=== PATIENT | male | born 1970 | race Caucasian/White ===

== ENCOUNTER 2016-10-14 07:36 | Emergency (ER) | payer OTHER ==
[~2016-10-14] VITALS: Ht 177.8 cm; Wt 91.6 kg
[~2016-10-14 07:36] MED LIST: ABILIFY5 M1 PO; LEXAPRO 20MG M20 MG PO; PROPRANOLOL HCL20 MG PO; TYLENOL WITH C1 EACH PO; XANAX0.5 MG PO
[2016-10-14 09:52] LABS: ABSOLUTE BASOPHIL COUNT 0 /CUMM (0.0-0.2); ABSOLUTE EOSINOPHIL COUNT 0.1 /CUMM (0.0-0.7); ABSOLUTE GRANULOCYTE CT 4.4 /CUMM (1.4-6.5); ABSOLUTE LYMPH COUNT 0.7 /CUMM (1.2-3.4); ABSOLUTE MONOCYTE COUNT 0.6 /CUMM (0.10-0.60); BASOPHIL % 0.3 % (0.0-2.0); EOSINOPHIL % 1.1 % (0-5); GRANULOCYTE % 75.6 % (42.2-75.2); HEMATOCRIT 48.9 % (42-52); MEAN CORPUSCULAR HGB 29.7 PG (27.0-31.0); MEAN CORPUSCULAR HGB CONC 34.4 G/DL (33.0-37.0); MEAN CORPUSCULAR VOLUME 86.4 FL (80.0-94.0); MEAN PLATELET VOLUME 9.4 FL (7.4-10.4); PLATELET COUNT 201 /CUMM (130-400); RBC DISTRIBUTION WIDTH 12.3 % (11.5-14.5); RED BLOOD CELL CT 5.66 /CUMM (4.70-6.10); WHITE BLOOD CELL COUNT 5.9 /CUMM (4.8-10.8)
--- NOTE | 2016-10-14 11:23 | CT SCAN REPORT ---
EXAMINATION: CT ANGIOGRAM HEAD CLINICAL INFORMATION: 46-year-old man with headaches, insomnia, and seizure. Evaluate for recurrent aneurysm. COMPARISON: 05/23/[address] TECHNIQUE: The patient was premedicated due to a history of IV contrast allergy. Test bolus sequences followed by intravenous administration 114 mL of Optiray 350 intravenous contrast. Helical imaging was performed in the axial plane from the mediastinum to the skull vertex. Noncontrast and delayed postcontrast imaging of the head was also performed. The data was processed at the cath lab radiological technologist's workstation for generation of MIP sequences. Three-dimensional volume rendered reformatted images were also generated at an offline 3-D workstation. DLP: 1859 mGy-cm. FINDINGS: HEAD: The patient has undergone prior right parietal craniotomy. Radiodense vascular and aneurysm clips are seen just beneath and inferior to the craniotomy flap near the right transverse sinus. There is some focal stable encephalomalacia in this region as well. No new enhancing intracranial mass, hemorrhage, midline shift, or extra-axial collection is identified. The paranasal sinuses are well aerated and clear. CRANIAL CTA: There is normal opacification of the major intracranial vessels. No acute proximal large vessel occlusion, focal flow-limiting stenosis, or saccular intracranial aneurysm is identified. No abnormal parenchymal enhancement or regional oligemia is visualized. IMPRESSION: Stable post surgical changes as described. Otherwise unremarkable brain CTA.
--- NOTE | 2016-10-14 11:47 | ED GENERAL ADULT ---
See Addendum History of Present Illness General Chief Complaint: General Adult Stated Complaint: "FUNNY TASTE IN MOUTH","CONVULSIONS IN SLEEP" Source: patient, old records Exam Limitations: no limitations Vital Signs & Intake/Output Vital Signs & Intake/Output Vital Signs Date Time Temp Pulse Resp B/P Pulse O2 O2 Flow FiO2 Ox Delivery Rate 10/14 1124 98.7 98 18 135/73 97 Room Air 10/14 0738 97.6 80 16 132/85 100 Room Air Allergies Coded Allergies: Iodinated Contrast Media - Oral and (PEDIATRIC ALLERGY 09/08/16) aspirin (Intermediate, BRAIN ANEURYSM, NEUROLOGIST DOES NOT RECOMMEND 09/08/16) carbamazepine (Intermediate, SEIZURES 09/08/16) lactose (Intermediate, GI UPSET 09/08/16) phenobarbital (Intermediate, SEIZURES 09/08/16) phenytoin (Intermediate, SEIZURES 09/08/16) Uncoded Allergies: SEASONAL ALLERGIES (SNEEZE , WATERY EYES, RUNNY NOSE 02/28/15) Reconcile Medications Alprazolam (Xanax) 0.5 MG TABLET 0 PO SEE ADMIN CRITERIA PRN panic May repeat a 2nd tab after 30 minutes if still with anxiety 4 times daily Aripiprazole (Abilify) 5 MG TABLET 1 TAB PO DAILY anxiety PROPRANOLOL HCL (Propranolol HCl) 20 MG TABLET 1 TAB PO TID HEART RATE/ANXIETY (Reported) Tylenol With Codeine (Tylenol With Codeine #3 Tablet) 1 EACH TABLET 1 TAB PO BIDP PRN HEADACHE Triage Note: PT STATES THAT HE WAS STARTED ON PROPANOLOL YESTERDAY DUE TO INSOMNIA, 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 Triage Nurses Notes Reviewed? yes Onset: 1 month Duration: week(s):, continues in ED, waxing and waning Timing: recent history Severity: moderate No Modifying Factors: none HPI: 1 month prior to admission patient complains of insomnia increased anxiety loss of appetite headaches palpitations lower abdominal discomfort that radiates to the chest. He has been evaluated by his PMD psychiatry and cardiology. Last night he thinks he may of had a seizure while sleeping awaking with generalized tremors myoclonic shaking and metallic taste in his mouth. Denies fever chills nausea vomiting diarrhea shortness breath dysuria rash bleeding. Past History Travel History Traveled to [place] past 21 day No Medical History Any Pertinent Medical History? 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 No Review of Systems Review of Systems Constitutional: Reports: see HPI, malaise. EENTM: Reports: see HPI. Respiratory: Reports: no symptoms. Cardiovascular: Reports: see HPI, palpitations. GI: Reports: no symptoms. Genitourinary: Reports: no symptoms. Musculoskeletal: Reports: no symptoms. Skin: Reports: no symptoms. Neurological/Psychological: Reports: see HPI, anxiety, headache. Hematologic/Endocrine: Reports: no symptoms. Immunologic/Allergic: Reports: no symptoms. All Other Systems: Reviewed and Negative Physical Exam Physical Exam General Appearance: well developed/nourished, alert, awake, anxious, mild distress Head: atraumatic, normal appearance Eyes: Bilateral: normal appearance, PERRL, EOMI. Ears, Nose, Throat: normal pharynx, normal ENT inspection, dental caries Neck: normal inspection, supple, full range of motion, no midline tenderness Respiratory: normal breath sounds, chest non-tender, no respiratory distress, quiet respiration, lungs clear Cardiovascular: regular rate/rhythm, normal peripheral pulses, norml femoral pulses equa Peripheral Pulses: 4+ carotid (R), 4+ carotid (L), 2+ radial (R), 2+ radial (L) Gastrointestinal: normal bowel sounds, soft, non-tender, no organomegaly Back: normal inspection, normal range of motion Extremities: normal inspection, normal capillary refill, normal range of motion, no edema Neurologic/Psych: no motor/sensory deficits, awake, alert, oriented x 3, normal gait, normal mood/affect, gill box fixer II-XII nml as tested Reflexes: 2+: bicep (R), bicep (L). Skin: intact, normal color Lymphatic: no anterior cervical teja Core Measures ACS in differential dx? No CVA/TIA Diagnosis: No Severe Sepsis Present: No Septic Shock Present: No Progress Differential Diagnoses I considered the following diagnoses in my evaluation of the patient: Seizure arrhythmia electrolyte abnormality depression aneurysm Plan of Care: Orders Procedure Date/time Status PROLACTIN 10/14 905 Complete MAGNESIUM 10/14 905 Complete COMPREHENSIVE METABOLIC PANEL 10/14 905 Complete CBC WITHOUT DIFFERENTIAL 10/14 905 Complete Laboratory Tests 10/14/16 0920: Anion Gap 10, Estimated GFR > 60, BUN/Creatinine Ratio 12.5, Glucose 106 H, Calcium 9.9, Magnesium 2.2, Total Bilirubin 1.1, AST 24, ALT 45, Alkaline Phosphatase 64, Total Protein 7.6, Albumin 4.6, Globulin 3.0, Albumin/Globulin Ratio 1.5, Prolactin 6.7, CBC w Diff NO MAN DIFF REQ, RBC 5.66, MCV 86.4, MCH 29.7, RDW 12.3, MPV 9.4, Gran % 75.6 H, Lymphocytes % 12.7 L, Monocytes % 10.3 H, Eosinophils % 1.1, Basophils % 0.3, Absolute Granulocytes 4.4, Absolute Lymphocytes 0.7 L, Absolute Monocytes 0.6, Absolute Eosinophils 0.1, Absolute Basophils 0, PUBS MCHC 34.4 Diagnostic Imaging: Viewed by Me: CT Scan. Discussed w/RAD: CT Scan. Radiology Impression: no acute abnormality Initial ED EKG: none Departure Departure Time of Disposition: 1141 Disposition: HOME OR SELF CARE Condition: Stable Clinical Impression Primary Impression: Seizure disorder Secondary Impressions: Dental caries Insomnia Qualifiers: Insomnia type: unspecified Qualified Code: G47.00 - Insomnia, unspecified Palpitations Referrals: RYLAN BURKS,SAMARA CARRERA MD,LUIS F (PCP/Family) ANANYA SEVILLA MD Additional Instructions: Follow up with your dentist Departure Forms: Customer Survey General Discharge Information Critical Care Note Critical Care Note Critical Care Time: non-applicable
[2016-10-14 13:36] VITALS: BP 116/70
== END 2016-10-14 13:57 ==
LOC: ERH 07:36
PROVIDERS: Emergency Medicine
DX: G40.909 Epilepsy, unspecified, not intractable, without status epilepticus (principal); K02.9 Dental caries, unspecified; G47.00 Insomnia, unspecified; R00.2 Palpitations; R10.13 Epigastric pain
CPT/HCPCS: 96374; 96375; J1200; J2930; Q9965

== ENCOUNTER 2016-10-16 07:58 | Emergency (ER) | payer OTHER ==
[~2016-10-16] VITALS: Ht 177.8 cm; Wt 91.6 kg
--- NOTE | 2016-10-16 08:37 | ED GENERAL ADULT ---
History of Present Illness General Chief Complaint: General Adult Stated Complaint: ACID REFLUX AND MANY OTHER COMPLAINTS Source: patient, old records Exam Limitations: no limitations Vital Signs & Intake/Output Vital Signs & Intake/Output Vital Signs Date Time Temp Pulse Resp B/P Pulse O2 O2 Flow FiO2 Ox Delivery Rate 10/16 0830 97 Room Air 10/16 0803 97.6 103 20 144/96 100 Room Air Allergies Coded Allergies: Iodinated Contrast Media - Oral and (PEDIATRIC ALLERGY 09/08/16) aspirin (Intermediate, BRAIN ANEURYSM, NEUROLOGIST DOES NOT RECOMMEND 09/08/16) carbamazepine (Intermediate, SEIZURES 09/08/16) lactose (Intermediate, GI UPSET 09/08/16) phenobarbital (Intermediate, SEIZURES 09/08/16) phenytoin (Intermediate, SEIZURES 09/08/16) Uncoded Allergies: SEASONAL ALLERGIES (SNEEZE , WATERY EYES, RUNNY NOSE 02/28/15) Reconcile Medications Aripiprazole (Abilify) 5 MG TABLET 1 TAB PO DAILY anxiety Escitalopram Oxalate 10 MG TABLET 1.5 TAB PO DAILY MENTAL HEALTH (Reported) PROPRANOLOL HCL (Propranolol HCl) 20 MG TABLET 1 TAB PO TID HEART RATE/ANXIETY (Reported) Triage Note: C/O ABDOMINAL PAIN AND HEART BURN, WITH MOUTH AND LEGS BURNING, SWEATING. SEEN HERE 2 DAYS AGO FOR SAME, HAD CT SCAN AND BLOOD WORK DONE (NEGATIVE). STATES HE HAS "MESH" IN HIS STOMACH FROM A PREVIOUS ULCER. PAIN IS WORSE TODAY. DENIES VOMITING OR DIARRHEA. Triage Nurses Notes Reviewed? yes HPI: Patient presents for evaluation of a severe burning heartburn pain in his chest and abdomen. Patient states he tried omeprazole without relief. He took one dose yesterday. Although he has a history of acid reflux he does not take medication for it generally. In addition the patient is complaining of burning leg pains, palpitations in his sleep and a funny taste in his mouth. He states that his symptoms seem to have worsened after a CAT scan done at the [facility] emergency department 2 days ago for an evaluation of a funny taste in his mouth and convulsions during sleep. He tried to see his primary care physician and GI specialists after that emergency department visit but has been unable to schedule an expedient appointment. He saw his campaign associate this week and had an echocardiogram and EKG performed. He saw his campaign associate because he was having palpitations in his sleep with associated insomnia. Patient describes his symptoms as constant severe and fluctuating in intensity. Past History Travel History Traveled to [place] past 21 day No Medical History Any Pertinent Medical History? 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 No Review of Systems Review of Systems Constitutional: Reports: no symptoms. EENTM: Reports: no symptoms. Respiratory: Reports: no symptoms. Cardiovascular: Reports: chest pain. GI: Reports: see HPI. Genitourinary: Reports: no symptoms. Musculoskeletal: Reports: see HPI. Skin: Reports: no symptoms. Neurological/Psychological: Reports: no symptoms. Hematologic/Endocrine: Reports: no symptoms. Immunologic/Allergic: Reports: no symptoms. All Other Systems: Reviewed and Negative Physical Exam Physical Exam General Appearance: see below Comments: Gen.: Well-nourished, well-developed, no acute respiratory distress. Moves slowly about the emergency department. Head: Normocephalic, atraumatic. Eyes: Normal inspection bilaterally Ears: Normal inspection bilaterally Nose: Normal inspection Throat/mouth : Moist mucosa Neck: Supple, full range of motion, no goiter Heart: Regular rate and rhythm, no murmurs rubs or gallops Lungs: Clear to auscultation bilaterally with normal air entry Chest: Nontender Back: Normal range of motion Abdomen: Soft, diffuse tenderness without rebound or guarding, nondistended, normal bowel sounds Extremities: Normal range of motion grossly, equal radial pulses, no cyanosis clubbing or edema, calves nontender Neurologic: Cranial nerves grossly intact, speech is clear Skin: warm and dry Psychiatric: Calm, cooperative, no apparent delusions or hallucinations Core Measures ACS in differential dx? No CVA/TIA Diagnosis: No Severe Sepsis Present: No Septic Shock Present: No Progress Differential Diagnoses I considered the following diagnoses in my evaluation of the patient: Acid reflux, hypothyroidism, anxiety Plan of Care: Orders Procedure Date/time Status TSH REFLEX 10/16 836 Complete LIPASE 10/16 836 Complete WESTERGREN SED RATE 10/16 836 Complete COMPREHENSIVE METABOLIC PANEL 10/16 836 Complete CBC WITHOUT DIFFERENTIAL 10/16 836 Complete Laboratory Tests 10/16/16 0912: Anion Gap 11, Estimated GFR > 60, BUN/Creatinine Ratio 16.4, Glucose 105 H, Calcium 9.7, Total Bilirubin 1.1, AST 29, ALT 47, Alkaline Phosphatase 67, Total Protein 7.8, Albumin 4.9, Globulin 2.9, Albumin/Globulin Ratio 1.7, Lipase 111, TSH &T3 &Free T4 Intrp 1.510, CBC w Diff NO MAN DIFF REQ, RBC 5.55, MCV 85.9, MCH 29.9, RDW 12.3, MPV 9.1, Gran % 71.0, Lymphocytes % 15.8 L, Monocytes % 12.6 H, Eosinophils % 0.3, Basophils % 0.3, Absolute Granulocytes 3.6, Absolute Lymphocytes 0.8 L, Absolute Monocytes 0.6, Absolute Eosinophils 0, Absolute Basophils 0, PUBS MCHC 34.8, ESR Westergren 2 Diagnostic Imaging: Discussed w/RAD: CT Scan. Radiology Impression: PATIENT: VELVET RAMOS PRESENT AGE: 46 PATIENT ACCOUNT NO: [id number] : 68 LOCATION: [facility] ORDERING PHYSICIAN: VENKATESH KAUR MD SERVICE DATE: 10/16/16 EXAM TYPE: CAT - CT ABD & PELVIS W/O IV CONTRAS EXAMINATION: CT ABDOMEN AND PELVIS WITHOUT CONTRAST CLINICAL INFORMATION: Burning chest and abdominal pain. COMPARISON: None TECHNIQUE: Multidetector volumetric imaging was performed from the superior aspect of the liver through the pubic symphysis. Sagittal and coronal reformatted images were obtained on the technologist's workstation. DLP: 311 mGy -cm FINDINGS: LUNG BASES: Unremarkable LIVER AND SPLEEN: Unremarkable PANCREAS GALLBLADDER AND BILIARY TREE: Pancreas is normal appearing. There is some hyperdense bile or sludge suggested within the gallbladder without evidence of cholelithiasis or acute cholecystitis. KIDNEYS, URETERS, AND ADRENALS: Unremarkable on this noncontrast examination. URINARY BLADDER: Well-distended and unremarkable. GI TRACT: There may be one or 2 small diverticula at the junction of the descending and sigmoid colon. Certainly there is no evidence of acute diverticulitis. There are multiple small lymph nodes along the small bowel mesentery in the left side of the abdomen with some very subtle soft tissue stranding which is nonspecific and could represent mesenteric panniculitis. Findings can also be seen with inflammatory bowel disease or lymphoma, however I see no other evidence of these alternate 2 diseases. Clinical correlation recommended. Otherwise unremarkable including a normal-appearing appendix. PERITONEAL CAVITY: No intraperitoneal free fluid or focal masses. RETROPERITONEUM: Mild atherosclerotic aortic calcification without aneurysmal dilatation. There is no retroperitoneal lymphadenopathy. PELVIC ORGANS: Unremarkable ANTERIOR ABDOMINAL WALL AND SOFT TISSUES: Small left inguinal hernia contains only mesenteric fat. Otherwise unremarkable. OSSEOUS STRUCTURES: Unremarkable IMPRESSION: 1. No evidence of an acute intra-abdominal process. 2. Hyperdense bile or sludge in the gallbladder, no evidence of cholelithiasis or acute cholecystitis. 3. Sigmoid colon diverticulosis, no evidence of diverticulitis. 4. Nonspecific small lymph nodes along the mesentery, question mesenteric panniculitis. 5. Small nonspecific mesenteric lymph nodes with subtle stranding. 6. Small left inguinal hernia contains only mesenteric fat. DICTATED BY: REINIER HOWARD MD DATE/TIME DICTATED:10/16/16955 LIVESTOCK HAULIER: ROSA DATE/TIME TRANSCRIBED:10/16/16955 CONFIDENTIAL, DO NOT COPY WITHOUT APPROPRIATE AUTHORIZATION. <Electronically signed in Other Vendor System> SIGNED BY: REINIER HOWARD MD 10/16/16 1019 Initial ED EKG: none Comments: Patient's prior evaluation in the emergency department reviewed. Blood work unremarkable. Patient had a CAT scan of the head but apparently no imaging studies of the abdomen and pelvis. 10/16/2016 11:22:27 AM I have updated Velvet on his test results. He keeps repeating that he is experiencing acid reflux into the chest. Plan Zofran for nausea and vomiting and continuation of the omeprazole on a consistent basis. Follow-up with a GI specialist and primary care physician. Regarding the questionable findings of mesenteric lymph nodes and the possibility of panniculitis, patient's white count and ESR are normal saline doubt an acute inflammatory or infectious process. Departure Departure Disposition: HOME OR SELF CARE Condition: Stable Clinical Impression Primary Impression: Abdominal pain Qualifiers: Abdominal location: periumbilical Qualified Code: R10.33 - Periumbilical pain Secondary Impressions: Acid reflux Qualifiers: Esophagitis presence: with esophagitis Qualified Code: K21.0 - Gastro-esophageal reflux disease with esophagitis Diverticulosis Qualifiers: Diverticulosis site: diverticulosis of large intestine Diverticulosis bleeding: diverticulosis without bleeding Qualified Code: K57.30 - Diverticulosis of large intestine without perforation or abscess without bleeding Referrals: DEBI BURKS,LUIS F (PCP/Family) LAKISHA CARSON MD Additional Instructions: [place] diet and avoid large meals and lying down after. Continue the omeprazole daily. Add Zofran as needed for nausea or vomiting. [id number] antacids as necessary. Follow-up with the GI specialist as soon as possible, notify your primary care doctor of this emergency department visit and treatment plan. Return if any concerns or sudden worsening. Please note that there might be incidental findings in your evaluation that are unrelated to the current emergency department visit. Please notify your primary care doctor about this emergency department visit in order to obtain and review all of the testing performed so that these incidental findings can be monitored as needed. If you had an x-ray performed, please understand that some fractures may not be seen on the initial set of x-rays. If your symptoms persist you might need a repeat set of x-rays to check for such a fracture. If you had a laceration evaluated, please understand that foreign bodies such as glass or wood may not be visible to the naked eye or on plain x-rays. If the wound becomes red, swollen, increasingly more painful or if there is any drainage from the wound, please have it reevaluated by a physician for the possibility of a retained foreign body. Thank you for choosing the [facility] Emergency Department for your care. It was a pleasure to serve you today. Venkatesh Kaur M.D. [facility] Departure Forms: Customer Survey General Discharge Information Prescriptions: Current Visit Scripts Ondansetron (Zofran Odt) 1 TAB SL Q6P PRN NAUSEA/VOMITING #10 TAB Critical Care Note Critical Care Note Critical Care Time: non-applicable
[2016-10-16] MEDS ORDERED: ESCITALOPRAM OX10 MG PO (09:18)
[2016-10-16 09:20] LABS: ABSOLUTE BASOPHIL COUNT 0 /CUMM (0.0-0.2); ABSOLUTE EOSINOPHIL COUNT 0 /CUMM (0.0-0.7); ABSOLUTE GRANULOCYTE CT 3.6 /CUMM (1.4-6.5); ABSOLUTE LYMPH COUNT 0.8 /CUMM (1.2-3.4); ABSOLUTE MONOCYTE COUNT 0.6 /CUMM (0.10-0.60); BASOPHIL % 0.3 % (0.0-2.0); EOSINOPHIL % 0.3 % (0-5); HEMATOCRIT 47.7 % (42-52); MEAN CORPUSCULAR HGB 29.9 PG (27.0-31.0); MEAN CORPUSCULAR HGB CONC 34.8 G/DL (33.0-37.0); MEAN CORPUSCULAR VOLUME 85.9 FL (80.0-94.0); MEAN PLATELET VOLUME 9.1 FL (7.4-10.4); PLATELET COUNT 175 /CUMM (130-400); RBC DISTRIBUTION WIDTH 12.3 % (11.5-14.5); RED BLOOD CELL CT 5.55 /CUMM (4.70-6.10); WHITE BLOOD CELL COUNT 5.1 /CUMM (4.8-10.8)
--- NOTE | 2016-10-16 10:19 | CT SCAN REPORT ---
EXAMINATION: CT ABDOMEN AND PELVIS WITHOUT CONTRAST CLINICAL INFORMATION: Burning chest and abdominal pain. COMPARISON: None TECHNIQUE: Multidetector volumetric imaging was performed from the superior aspect of the liver through the pubic symphysis. Sagittal and coronal reformatted images were obtained on the technologist's workstation. DLP: 311 mGy-cm FINDINGS: LUNG BASES: Unremarkable LIVER AND SPLEEN: Unremarkable PANCREAS GALLBLADDER AND BILIARY TREE: Pancreas is normal appearing. There is some hyperdense bile or sludge suggested within the gallbladder without evidence of cholelithiasis or acute cholecystitis. KIDNEYS, URETERS, AND ADRENALS: Unremarkable on this noncontrast examination. URINARY BLADDER: Well-distended and unremarkable. GI TRACT: There may be one or 2 small diverticula at the junction of the descending and sigmoid colon. Certainly there is no evidence of acute diverticulitis. There are multiple small lymph nodes along the small bowel mesentery in the left side of the abdomen with some very subtle soft tissue stranding which is nonspecific and could represent mesenteric panniculitis. Findings can also be seen with inflammatory bowel disease or lymphoma, however I see no other evidence of these alternate 2 diseases. Clinical correlation recommended. Otherwise unremarkable including a normal-appearing appendix. PERITONEAL CAVITY: No intraperitoneal free fluid or focal masses. RETROPERITONEUM: Mild atherosclerotic aortic calcification without aneurysmal dilatation. There is no retroperitoneal lymphadenopathy. PELVIC ORGANS: Unremarkable ANTERIOR ABDOMINAL WALL AND SOFT TISSUES: Small left inguinal hernia contains only mesenteric fat. Otherwise unremarkable. OSSEOUS STRUCTURES: Unremarkable IMPRESSION: 1. No evidence of an acute intra-abdominal process. 2. Hyperdense bile or sludge in the gallbladder, no evidence of cholelithiasis or acute cholecystitis. 3. Sigmoid colon diverticulosis, no evidence of diverticulitis. 4. Nonspecific small lymph nodes along the mesentery, question mesenteric panniculitis. 5. Small nonspecific mesenteric lymph nodes with subtle stranding. 6. Small left inguinal hernia contains only mesenteric fat.
[2016-10-16] MEDS ORDERED: ZOFRAN ODT4 M1 SL (11:27)
[2016-10-16 11:41] VITALS: BP 135/84
--- NOTE | 2016-10-19 08:47 | OP PSYCH INCIDENTAL NOTE ---
OPS Incidential Note Details: I received a message that pt. was admitted to [facility] over the weekend
== END 2016-10-16 11:42 ==
LOC: ERH 07:58
PROVIDERS: Emergency Medicine
DX: K21.9 Gastro-esophageal reflux disease without esophagitis (principal); K57.92 Diverticulitis of intestine, part unspecified, without perforation or abscess without bleeding
CPT/HCPCS: 74176

== ENCOUNTER 2016-10-19 11:35 | Emergency (ER) | payer OTHER ==
[~2016-10-19] VITALS: Ht 177.8 cm; Wt 88.5 kg
[~2016-10-19 11:35] MED LIST changes: +ESCITALOPRAM OX10 MG PO; +ZOFRAN ODT4 M1 SL
--- NOTE | 2016-10-19 14:01 | ED PSYCHIATRIC COMPLAINT ---
History of Present Illness General Chief Complaint: Psychiatric Related Complaint Stated Complaint: SENT FROM GI FOR BP 115/90?,ANXIETY,CONFUSED Source: patient, old records Exam Limitations: no limitations Vital Signs & Intake/Output Vital Signs & Intake/Output Vital Signs Date Time Temp Pulse Resp B/P Pulse O2 O2 Flow FiO2 Ox Delivery Rate 10/19 2021 97.8 87 18 128/79 99 Room Air 10/19 1611 97.1 10/19 1520 97.1 88 18 128/80 98 10/19 1140 97.0 84 18 130/83 98 Room Air Allergies Coded Allergies: Iodinated Contrast Media - Oral and (PEDIATRIC ALLERGY 09/08/16) aspirin (Intermediate, BRAIN ANEURYSM, NEUROLOGIST DOES NOT RECOMMEND 09/08/16) carbamazepine (Intermediate, SEIZURES 09/08/16) lactose (Intermediate, GI UPSET 09/08/16) phenobarbital (Intermediate, SEIZURES 09/08/16) phenytoin (Intermediate, SEIZURES 09/08/16) Uncoded Allergies: SEASONAL ALLERGIES (SNEEZE , WATERY EYES, RUNNY NOSE 02/28/15) Reconcile Medications Alprazolam (Xanax) 0.5 MG TABLET 1 TAB PO BIDP PRN anxiety Aripiprazole (Abilify) 5 MG TABLET 1 TAB PO DAILY anxiety Escitalopram Oxalate 10 MG TABLET 1.5 TAB PO DAILY MENTAL HEALTH (Reported) Hydroxyzine Pamoate (Vistaril) 50 MG CAPSULE 1 CAP PO TID PRN anxiety Ondansetron (Zofran Odt) 4 MG TAB.RAPDIS 1 TAB SL Q6P PRN NAUSEA/VOMITING PROPRANOLOL HCL (Propranolol HCl) 20 MG TABLET 1 TAB PO TID HEART RATE/ANXIETY (Reported) Triage Note: PT STATES THAT HE WAS AT DR LEVY OFFICE FOR GI FOLLOW UP , COMPLAINS OF BEING UP SINCE 0100 FEELING VERY ANXIOUS, WAS STARTED ON ANXIETY MEDS AT [facility]. PT HAS BEEN SEEN HERE A FEW TIMES FOR ACID REFLUX, STATES THAT HE LEFT HERE WEDNESDAY AND WHEN HE WAS DISCHARGED HE WENT TO [facility] WHERE HE WAS ADMITTED FOR IV PROTONIX, STATES THAT HE HAD A LOT OF ANXIETY AND AND STARTED ON XANAX. PT STATES THAT HE CALLED IOP AND THEY TOLD HIM TO COME TO ER FOR EVALUATION. DENIES SI/HI. Triage Nurses Notes Reviewed? yes Onset: Abrupt Duration: week(s):, constant, getting worse Timing: recent history Severity: moderate Severity Numbers: 7 Associated Symptoms: anxiety, impaired concentration, insomnia HPI: This is a 46-year-old male with history of panic attacks anxiety disorder depression history of seizures migraine headaches brain in [place] presents to emergency room sent in by [facility] for evaluation. The patient states that he was admitted to [facility] over the weekend due to severe reflux for which she was receiving IV Protonix and was having worsening anxiety secondary to his symptoms. The patient was taken off of Valium and was sent home with Xanax 0.25 mg for a total of 3 pills. He states that he woke up at 1:00 in the morning and has been unable to sleep since. He feels as though his mind and body have been "racing". The patient denies history of suicidal or homicidal ideation. He denies any alcohol or drug use. The patient states that previously he was having abdominal pain feeling nauseous. He states in the past he's had panic attacks where he said chest tightness pain palpitations which she denies a history of today. He [facility] her referred him to the emergency room for further workup after he missed his appointment this morning to be seen by them.. He has been compliant with taking his Lexapro. The patient was seen here twice within the past 5 days with an unremarkable workup including CAT scans of the abdomen and head (SAMARA ABDUL) Past History Travel History Traveled to [place] past 21 day No Medical History Any Pertinent Medical History? 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 No (SAMARA ABDUL) Review of Systems Review of Systems Constitutional: Reports: see HPI. All Other Systems: Reviewed and Negative Comments Review of systems: See HPI, All other systems negative. Constitutional, no chills no fever, no malaise HEENT: no sore throat no congestion, no ear pain Cardiovascular: No chest pain , no palpitation Skin, no jaundice no rashes, no change in skin Respiratory: No dyspnea no cough no sputum no hemoptysis GI: No nausea no vomiting, no diarrhea : No dysuria Muscle skeletal: No joint pain, no joint swelling, no back pain, no neck pain, Neurologic: No numbness no confusion, no headache Psych: SEE HPI Heme/endocrine: No bruising no bleeding Immunology: No lymphadenopathY (SAMARA ABDUL) Physical Exam Physical Exam General Appearance: well developed/nourished, alert, awake Neurological/Psychiatric: awake, normal mood/affect, calm, 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 moist mucous membranes. Neck: Supple, no lymphadenopathy, normal range of motion Back: Nontender, Full range of motion Cardiovascular: Regular rate and rhythms no murmurs rubs Respiratory: No respiratory distress. Patient speaking in full complete sentences. Breath sounds clear to auscultation bilaterally: NO W/R/R Abdomen: Soft, nontender nondistended, no appreciable organomegaly. Normal bowel sounds. No rebound/guarding Extremity: No edema, full range of motion of extremities Neuro: Alert oriented x3, motor sensory normal, There were no obvious focal neurologic abnormalities. Skin: No appreciable rash on exposed skin, skin is warm and dry. Psych: Mood and affect is normal, memory and judgment is normal. SAD PERSONS Done? patient not suicidal (SAMARA ABDUL) Progress Differential Diagnosis: drug overdose, drug withdrawal, electrolyte abnormality, ANXIETY DISORDER Plan of Care: Orders Procedure Date/time Status URINE DRUG SCREEN FOR ER ONLY 10/19 1401 Complete ETHANOL 10/19 1401 Complete COMPREHENSIVE METABOLIC PANEL 10/19 1401 Complete CBC WITHOUT DIFFERENTIAL 10/19 140 Complete ED CRISIS PSYCH CONSULT 10/19 1401 Active Laboratory Tests 10/19/16 1539: Urine Opiates Screen < 100.00, Methadone Screen < 40, Barbiturate Screen < 60, Ur Phencyclidine Scrn < 6.00, Amphetamines Screen < 100, U Benzodiazepines Scrn > 800 H, Urine Cocaine Screen < 50, Urine Cannabis Screen < 5.00 10/19/16 1512: Anion Gap 11, Estimated GFR > 60, BUN/Creatinine Ratio 13.6, Glucose 102 H, Calcium 9.9, Total Bilirubin 1.3, AST 50, ALT 115 H, Alkaline Phosphatase 76, Total Protein 8.1, Albumin 4.9, Globulin 3.2, Albumin/Globulin Ratio 1.5, CBC w Diff NO MAN DIFF REQ, RBC 5.53, MCV 87.3, MCH 29.7, RDW 12.4, MPV 9.5, Gran % 76.2 H, Lymphocytes % 13.4 L, Monocytes % 9.0, Eosinophils % 1.1, Basophils % 0.3, Absolute Granulocytes 4.8, Absolute Lymphocytes 0.9 L, Absolute Monocytes 0.6, Absolute Eosinophils 0.1, Absolute Basophils 0, PUBS MCHC 34.0, Serum Alcohol < 10.0 LABS ORDERED, OLD RECORDS REVIEWED. CRISIS CONSULTED Case was discussed with Spoke with crisis who after speaking with the patient getting collateral they feel the patient can be safely discharged advise Vistaril BuSpar or Benadryl. In addition to the Xanax he has at home. Discussed the patient this plan of care he feels comfortable plan he'll follow-up with his psychiatrist tomorrow he will return anytime sooner if the symptoms worsen despite the Vistaril prescription of Xanax provided cleared for discharge (SAMARA ABDUL) Departure Departure Time of Disposition: 1953 Disposition: HOME OR SELF CARE Condition: Stable Clinical Impression Primary Impression: Anxiety Referrals: DEBI BURKS,LUIS F (PCP/Family) GRUPO GONZALEZ MD Additional Instructions: Follow-up with your doctor at [facility] as well as your psychiatrist tomorrow. Vistaril and Xanax as directed no driving or drinking alcohol while taking this medication is still make you drowsy Departure Forms: Customer Survey General Discharge Information Prescriptions: Current Visit Scripts Hydroxyzine Pamoate (Vistaril) 1 CAP PO TID PRN anxiety #15 CAP Alprazolam (Xanax) 1 TAB PO BIDP PRN anxiety #10 TAB (SAMARA ABDUL) PA/CEO ZIFF DAVIS Co-Sign Statement Statement: ED Attending supervision documentation- [] I saw and evaluated the patient. I have also reviewed all the pertinent lab results and diagnostic results. I agree with the findings and the plan of care as documented in the PA's/CEO ZIFF DAVIS's documentation. [X] I have reviewed the ED Record and agree with the PA's/CEO ZIFF DAVIS's documentation. [] Additions or exceptions (if any) to the PAs/CEO ZIFF DAVIS's note and plan are summarized below: [] (YAHAIRA BURKS,KOFI)
--- NOTE | 2016-10-19 14:59 | ED PSY CRISIS COLLATERAL NOTE ---
Collateral Note Collateral Note Family/Inform/Lizeth Contacts: [facility] () Out pt Therapist Zenaida Saldana LCSW called crisis and left a voice message informing that she sent pt to the ED for a Crisis eval due to anxiety and somatic complaints. She reported that he was recently discharged from inpt [facility] and was told that the primary issues were due to anxiety and not medical. She also informed that he has been seen in the ED several times. Additionally, she informed that she will send crisis an email with additional clinical. She sent the following in an email: "Mani Levy is a 46yo single, Cauc. male in OPS for Major Depression and Panic Disorder. He has been calling OPS to reach Dr. Cheng, several times this morning 10/19, staff in OPS asked me to take his call. He was in the parking lot on his way in to ED (IS NOW IN ED) , reports various somatic issues, high anxiety, was just released from [facility] due to somatic issues (muscle tightness, anxiety, poor sleep) was there from 10/16/16-10/18/16, was told upon discharge it was anxiety and to contact Dr. Parks (Pt missed his appt. with Dr. Dowd this morning). 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 is concerned about his BP 115/90, and was recommended to see Dr. Cheng (per PT). Mani seems to be very somatically preoccupied, and seems root is severe anxiety - may need IOP or psych admission. He has many workup's in ED, and has various outpatient medical appointments. He is reporting poor sleep, poor appetite, obsessive thoughts about somatic issues, extreme anxiety. Mani is a single, employed male resides with is girlfriend, Alexandra (together 9yrs) in [place], [place]. He has been in OPS - with myself for individual 1-2x per month, and Dr. Cheng for meds. He does not attend any groups - refuses groups in the past. Zenaida Saldana LCSW"
[2016-10-19 15:37] LABS: ABSOLUTE BASOPHIL COUNT 0 /CUMM (0.0-0.2); ABSOLUTE EOSINOPHIL COUNT 0.1 /CUMM (0.0-0.7); ABSOLUTE GRANULOCYTE CT 4.8 /CUMM (1.4-6.5); ABSOLUTE LYMPH COUNT 0.9 /CUMM (1.2-3.4); ABSOLUTE MONOCYTE COUNT 0.6 /CUMM (0.10-0.60); BASOPHIL % 0.3 % (0.0-2.0); EOSINOPHIL % 1.1 % (0-5); GRANULOCYTE % 76.2 % (42.2-75.2); HEMATOCRIT 48.3 % (42-52); MEAN CORPUSCULAR HGB 29.7 PG (27.0-31.0); MEAN CORPUSCULAR VOLUME 87.3 FL (80.0-94.0); MEAN PLATELET VOLUME 9.5 FL (7.4-10.4); PLATELET COUNT 184 /CUMM (130-400); RBC DISTRIBUTION WIDTH 12.4 % (11.5-14.5); RED BLOOD CELL CT 5.53 /CUMM (4.70-6.10); WHITE BLOOD CELL COUNT 6.3 /CUMM (4.8-10.8)
[2016-10-19] MEDS ORDERED: XANAX0.5 M1 PO (19:55)
[2016-10-19] MEDS ORDERED: VISTARIL50 M1 PO (19:55)
[2016-10-19 20:22] VITALS: BP 128/79
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
== END 2016-10-19 20:24 ==
LOC: ERH 11:35
PROVIDERS: Physician Assistant Medical
DX: F41.9 Anxiety disorder, unspecified (principal)
CPT/HCPCS: 80307; G0463; G0480

== ENCOUNTER 2016-10-21 05:48 | Emergency (ER) | payer OTHER ==
[~2016-10-21] VITALS: Ht 177.8 cm; Wt 88.5 kg
[~2016-10-21 05:48] MED LIST changes: +VISTARIL50 M1 PO; +XANAX0.5 M1 PO
--- NOTE | 2016-10-21 05:57 | ED CARDIAC/CP/PALPITATIONS ---
History of Present Illness General Chief Complaint: General Adult Stated Complaint: DIFF BREATHING ? ANXIETY Source: patient, old records Exam Limitations: no limitations Vital Signs & Intake/Output Vital Signs & Intake/Output Vital Signs Date Time Temp Pulse Resp B/P Pulse O2 O2 Flow FiO2 Ox Delivery Rate 10/21 0918 97.7 68 16 122/78 100 Room Air 10/21 0807 97.0 81 20 134/69 98 Room Air 10/21 0603 100 Room Air Room Air 10/21 0559 95.7 77 16 137/88 100 Room Air Allergies Coded Allergies: morphine (Severe, INCREASED HEART RATE 10/21/16) Iodinated Contrast Media - Oral and (PEDIATRIC ALLERGY 09/08/16) aspirin (Intermediate, BRAIN ANEURYSM, NEUROLOGIST DOES NOT RECOMMEND 09/08/16) carbamazepine (Intermediate, SEIZURES 09/08/16) lactose (Intermediate, GI UPSET 09/08/16) phenobarbital (Intermediate, SEIZURES 09/08/16) phenytoin (Intermediate, SEIZURES 09/08/16) Uncoded Allergies: SEASONAL ALLERGIES (SNEEZE , WATERY EYES, RUNNY NOSE 02/28/15) Reconcile Medications Alprazolam (Xanax) 0.5 MG TABLET 1 TAB PO BIDP PRN anxiety Aripiprazole (Abilify) 5 MG TABLET 1 TAB PO DAILY anxiety Escitalopram Oxalate 10 MG TABLET 1.5 TAB PO DAILY MENTAL HEALTH (Reported) Hydroxyzine Pamoate (Vistaril) 50 MG CAPSULE 1 CAP PO TID PRN anxiety Ondansetron (Zofran Odt) 4 MG TAB.RAPDIS 1 TAB SL Q6P PRN NAUSEA/VOMITING PROPRANOLOL HCL (Propranolol HCl) 20 MG TABLET 1 TAB PO TID HEART RATE/ANXIETY (Reported) Triage Nurses Notes Reviewed? yes HPI: Patient presents complaining of chest pain and shortness of breath which has been constant over the past few weeks but got worse last night. Patient has multiple ED visits for the same and has also been at [facility] for similar symptoms. Patient has been told that it is just gas and had a local way. Patient describes a squeezing substernal sensation which is constant. There are no aggravating or mitigating factors. There is no radiation. Positive shortness of breath. Patient took Gas-X last night without any relief. Patient called the pharmacist again to state that the Gas-X extra strength did not help and the pharmacist instructed him to come to the emergency department. Patient does not feel that it is his anxiety that is causing the symptoms. He rates the squeezing pain at 8 out of 10. There is no radiation. Positive shortness of breath but no dyspnea on exertion or orthopnea. No fevers or chills. (CHAPIS BURKS,ROBBIE Thomas) Past History Medical History Any Pertinent Medical History? 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 No (CHAPIS BURKS,ROBBIE Thomas) Review of Systems Review of Systems Constitutional: Reports: no symptoms. EENTM: Reports: no symptoms. Respiratory: Reports: see HPI, short of breath. Cardiovascular: Reports: see HPI, chest pain. GI: Reports: no symptoms. Genitourinary: Reports: no symptoms. Musculoskeletal: Reports: no symptoms. Skin: Reports: no symptoms. Neurological/Psychological: Reports: see HPI, anxiety. Hematologic/Endocrine: Reports: no symptoms. Immunologic/Allergic: Reports: no symptoms. All Other Systems: Reviewed and Negative (CHAPIS BURKS,ROBBIE Thomas) Physical Exam Physical Exam General Appearance: well developed/nourished, alert, awake, anxious, moderate distress Head: atraumatic, normal appearance Eyes: Bilateral: PERRL, EOMI. Ears, Nose, Throat: normal pharynx, normal ENT inspection, hearing grossly normal Neck: normal inspection, supple, full range of motion, NO JVD Respiratory: normal breath sounds, chest non-tender, no respiratory distress, lungs clear Cardiovascular: regular rate/rhythm, normal peripheral pulses Gastrointestinal: normal bowel sounds, soft, non-tender, no organomegaly Extremities: normal inspection, normal capillary refill, normal range of motion, no edema Neurologic/Psych: no motor/sensory deficits, awake, alert, oriented x 3, normal gait, normal mood/affect Skin: intact, normal color, warm/dry Core Measures ACS in differential dx? No Severe Sepsis Present: No Septic Shock Present: No (CHAPIS BURKS,ROBBIE Thomas) Progress Differential Diagnosis: AMI, aortic dissection, atrial fibrillation, pneumonia, pneumothorax, PSVT, pulmonary embolism Plan of Care: Orders Procedure Date/time Status TROPONIN LEVEL 10/21 0748 Complete EKG 10/21 0748 Active D-DIMER 10/21 06 Complete Telemetry/Cracking Still Operator 10/21 556 Active TROPONIN LEVEL 10/21 556 Complete COMPREHENSIVE METABOLIC PANEL 10/21 556 Complete CBC WITHOUT DIFFERENTIAL 10/21 556 Complete EKG 10/21 556 Active Laboratory Tests 10/21/16 0807: Troponin I < 0.01 10/21/16 0615: Anion Gap 12, Estimated GFR > 60, BUN/Creatinine Ratio 14.2, Glucose 100 H, Calcium 9.5, Total Bilirubin 0.9, AST 40, ALT 112 H, Alkaline Phosphatase 65, Troponin I 0.01, Total Protein 7.2, Albumin 4.4, Globulin 2.8, Albumin/Globulin Ratio 1.6, D-Dimer 23 L, CBC w Diff NO MAN DIFF REQ, RBC 5.01, MCV 87.2, MCH 30.1, RDW 12.4, MPV 9.2, Gran % 69.1, Lymphocytes % 17.8 L, Monocytes % 11.6 H , Eosinophils % 1.3, Basophils % 0.2, Absolute Granulocytes 3.3, Absolute Lymphocytes 0.9 L, Absolute Monocytes 0.6, Absolute Eosinophils 0.1, Absolute Basophils 0, PUBS MCHC 34.5 10/21/16 0557: D-Dimer Cancelled Initial ED EKG: NSR, nonspecific ST T wave chg Prior EKG: unchanged Rhythm Strip: normal sinus rhythm Hand-Off Endorsed To: ROGELIO LIM DO Endorsed Time: 0700 Pending: labs (CHAPIS BURKS,ROBBIE Thomas) Departure Departure Disposition: STILL A PATIENT Condition: Stable Clinical Impression Primary Impression: Chest pain Qualifiers: Chest pain type: other chest pain Qualified Code: R07.89 - Other chest pain Referrals: LUIS F CARRERA MD (PCP/Family) Departure Forms: Customer Survey General Discharge Information (ROBBIE NATION MD) Departure Comments 2/1/17 46-year-old male was signed out to me for follow-up of chest pain. He woke up from sleep with chest pain; serial troponins are negative, EKG is unchanged. The patient was evaluated by GI yesterday. I spoke with his primary care GLAZIER STAINED GLASS Camila Ruiz; covering for Dr Carrera. He will follow up with outpatient psychiatry today. Camila will coordinate his outpatient workup and further care. (CARINA COFFEY,ROGELIO Johnson) Critical Care Note Critical Care Note Critical Care Time: non-applicable (CHAPIS BURKS,ROBBIE Thomas)
[2016-10-21 06:30] LABS: ABSOLUTE BASOPHIL COUNT 0 /CUMM (0.0-0.2); ABSOLUTE EOSINOPHIL COUNT 0.1 /CUMM (0.0-0.7); ABSOLUTE GRANULOCYTE CT 3.3 /CUMM (1.4-6.5); ABSOLUTE LYMPH COUNT 0.9 /CUMM (1.2-3.4); ABSOLUTE MONOCYTE COUNT 0.6 /CUMM (0.10-0.60); BASOPHIL % 0.2 % (0.0-2.0); EOSINOPHIL % 1.3 % (0-5); GRANULOCYTE % 69.1 % (42.2-75.2); HEMATOCRIT 43.7 % (42-52); MEAN CORPUSCULAR HGB 30.1 PG (27.0-31.0); MEAN CORPUSCULAR HGB CONC 34.5 G/DL (33.0-37.0); MEAN CORPUSCULAR VOLUME 87.2 FL (80.0-94.0); MEAN PLATELET VOLUME 9.2 FL (7.4-10.4); PLATELET COUNT 154 /CUMM (130-400); RBC DISTRIBUTION WIDTH 12.4 % (11.5-14.5); RED BLOOD CELL CT 5.01 /CUMM (4.70-6.10); WHITE BLOOD CELL COUNT 4.8 /CUMM (4.8-10.8)
--- NOTE | 2016-10-21 06:46 | RADIOLOGY REPORT ---
EXAMINATION: CHEST 1 VIEW CLINICAL INFORMATION: Chest pain. COMPARISON: 05/28/2014. TECHNIQUE: An AP view of the chest is provided. FINDINGS: The cardiac silhouette is not enlarged. The mediastinal and hilar contours are unremarkable. There are neither pleural effusions nor pneumothoraces. There are no consolidations. The osseous structures are unremarkable. IMPRESSION: No evidence for acute disease.
[2016-10-21 09:18] VITALS: BP 122/78
== END 2016-10-21 09:10 ==
LOC: ERH 05:48
PROVIDERS: Emergency Medicine
DX: R07.9 Chest pain, unspecified (principal)
CPT/HCPCS: 93005; 93010; J3101

== ENCOUNTER 2016-11-04 05:02 | Emergency (ER) | payer OTHER ==
[~2016-11-04] VITALS: Ht 177.8 cm; Wt 86.2 kg
--- NOTE | 2016-11-04 05:30 | ED DYSPNEA/ASTHMA COMPLAINT ---
History of Present Illness General Chief Complaint: Dyspnea (COPD, CHF, Other) Stated Complaint: DIFF BREATHING,CHEST HEAVINESS Source: patient Exam Limitations: no limitations Vital Signs & Intake/Output Vital Signs & Intake/Output Vital Signs Date Time Temp Pulse Resp B/P Pulse O2 O2 Flow FiO2 Ox Delivery Rate 11/04 0536 96 Room Air 11/04 0506 97.1 66 20 142/78 98 Room Air Allergies Coded Allergies: morphine (Severe, INCREASED HEART RATE 10/21/16) Iodinated Contrast Media - Oral and (PEDIATRIC ALLERGY 09/08/16) aspirin (Intermediate, BRAIN ANEURYSM, NEUROLOGIST DOES NOT RECOMMEND 09/08/16) carbamazepine (Intermediate, SEIZURES 09/08/16) lactose (Intermediate, GI UPSET 09/08/16) phenobarbital (Intermediate, SEIZURES 09/08/16) phenytoin (Intermediate, SEIZURES 09/08/16) Uncoded Allergies: SEASONAL ALLERGIES (SNEEZE , WATERY EYES, RUNNY NOSE 02/28/15) Reconcile Medications Alprazolam (Xanax) 0.5 MG TABLET 1 TAB PO BIDP PRN anxiety Aripiprazole (Abilify) 5 MG TABLET 1 TAB PO DAILY anxiety Escitalopram Oxalate 10 MG TABLET 1.5 TAB PO DAILY MENTAL HEALTH (Reported) Hydroxyzine Pamoate (Vistaril) 50 MG CAPSULE 1 CAP PO TID PRN anxiety Lorazepam (Ativan) 1 MG TABLET 1-2 TAB PO QHS PRN INSOMNIA Ondansetron (Zofran Odt) 4 MG TAB.RAPDIS 1 TAB SL Q6P PRN NAUSEA/VOMITING PROPRANOLOL HCL (Propranolol HCl) 20 MG TABLET 1 TAB PO TID HEART RATE/ANXIETY (Reported) Triage Note: 46YO MALE TO RM 8 VIA WHEELCHAIR FROM [facility] W/CO DIFF BREATHING, NOT BEING ABLE TO SLEEP X 2 D AND A "POUNDING CRAIG" STATES HE WAS DIAGNOSED WEDNESDAY WITH "AN INFECTION IN THE PROSTATE AND PLACED ON CIPRO. Triage Nurses Notes Reviewed? yes HPI: Patient presents for evaluation of difficulty breathing and chest heaviness that began abruptly at about 2 to 3:00 this morning while sleeping. Patient states he tried to sit in a chair without relief. He then had a syncopal episode while getting ready to come to the emergency department for an evaluation. He states he hasn't slept in about 2 days and has been suffering from insomnia for about a month now. He just began a prescription for gabapentin last night to help with the insomnia. He is also currently taking an antibiotic for prostatitis. He states he has had no prior episodes like this before. He states that although he feels tired his body "wants to run". He denies depression or suicide ideation. Symptoms are described as severe and constant and nothing seems to make him feel better. Past History Travel History Traveled to [place] past 21 day No Medical History Any Pertinent Medical History? 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 No Review of Systems Review of Systems Constitutional: Reports: no symptoms. EENTM: Reports: no symptoms. Respiratory: Reports: see HPI. Cardiovascular: Reports: see HPI. GI: Reports: no symptoms. Genitourinary: Reports: no symptoms. Musculoskeletal: Reports: no symptoms. Skin: Reports: no symptoms. Neurological/Psychological: Reports: no symptoms. Hematologic/Endocrine: Reports: no symptoms. Immunologic/Allergic: Reports: no symptoms. All Other Systems: Reviewed and Negative Physical Exam Physical Exam Respiratory: SEE BELOW Comments: Gen.: Well-nourished, well-developed, no acute respiratory distress. Head: Normocephalic, atraumatic. Eyes: Normal inspection bilaterally Ears: Normal inspection bilaterally Nose: Normal inspection Throat/mouth : Moist mucosa Neck: Supple, full range of motion, no goiter Heart: Regular rate and rhythm, no murmurs rubs or gallops Lungs: Clear to auscultation bilaterally with normal air entry Chest: Nontender Back: Normal range of motion Abdomen: Soft, nontender, nondistended, normal bowel sounds Extremities: Normal range of motion grossly, equal radial pulses, no cyanosis clubbing or edema Neurologic: Cranial nerves grossly intact, speech is clear Skin: warm and dry Psychiatric: Calm, cooperative, no apparent delusions or hallucinations Lymphatic: No cervical lymphadenopathy Core Measures ACS in differential dx? No Severe Sepsis Present: No Septic Shock Present: No Progress Differential Diagnosis: AMI, pneumonia, unstable angina, ANEMIA, ELECTROLYTE ABNORMALITY/DEHYDRATION,VIRAL SYNDROME/OCCULT INFECTION Plan of Care: Orders Procedure Date/time Status THYROID STIMULATING HORMONE 11/04 527 Complete TROPONIN LEVEL 11/04 527 Complete CORTISOL AM 11/04 527 Complete EKG 11/04 527 Active Laboratory Tests 11/04/16 0543: Troponin I < 0.01, TSH 1.000, Cortisol AM Sample 12.5 Initial ED EKG: NSR, rate (74) Prior EKG: unchanged Comments: Prior visit on October 21 reviewed. Evaluation at that time was unremarkable. I have added selective tests tonight based on the patient's most recent evaluation. 11/04/2016 7:51:08 AM I have updated Mani on his test results. He seems particularly concerned about his inability to sleep at night. He has tried many different medications including trazodone and Seroquel but he gets adverse reactions to these. He is currently on gabapentin presumably for insomnia and he is taking this 3 times a day so this seems to be more for mood stabilization. I will add Ativan to help with his insomnia. Departure Departure Disposition: HOME OR SELF CARE Condition: Stable Clinical Impression Primary Impression: Insomnia Qualifiers: Insomnia type: unspecified Qualified Code: G47.00 - Insomnia, unspecified Secondary Impressions: Malaise Referrals: LUIS F CARRERA MD (PCP/Family) Additional Instructions: Continue your current medications and add Ativan as prescribed for insomnia. Follow up with your psychiatrist next week. Return if any concerns or sudden worsening. Departure Forms: Customer Survey General Discharge Information Prescriptions: Current Visit Scripts Lorazepam (Ativan) 1-2 TAB PO QHS PRN INSOMNIA #12 TAB Critical Care Note Critical Care Note Critical Care Time: non-applicable
[2016-11-04] MEDS ORDERED: ATIVAN1 M1 PO (07:53)
[2016-11-04 08:25] VITALS: BP 136/84
== END 2016-11-04 08:25 ==
LOC: ERH 05:02
DX: G47.00 Insomnia, unspecified (principal); R53.81 Other malaise; R07.9 Chest pain, unspecified
CPT/HCPCS: 93005; 93010